=== PATIENT | female | born 1950 | race Caucasian/White ===

== ENCOUNTER → 2016-11-08 | Outpatient (CLI) | payer MEDICARE, OTHER | LOC: GLAB 14:30 | DX: J47.9 Bronchiectasis, uncomplicated (principal) ==

== ENCOUNTER 2017-02-06 12:59 | Emergency (ER) | payer MEDICARE, OTHER ==
--- NOTE | ~2017-02-06 | ER ---
PATIENT'S NAME: LAURA NIETO [facility] AGE: 66 Y [address] ROOM: [place] [address] LOCATION: [facility] ADMIT DATE: 02/06/2017 ER/Outpatient Report DISCHARGE DATE: 02/06/2017 FAMILY PHYSICIAN: Violeta Walker MD ATTENDING PHYSICIAN: Issac Arreaga TIME SEEN: 1315 hours. CHIEF COMPLAINT: Left ankle swelling. HISTORY OF PRESENT ILLNESS: The patient is a 66-year-old, white female, who was recently hiking in [place] when she started having left knee pain. The patient was seen at an urgent care in [place] where an x-ray was obtained, which showed no bony injury. The patient was put in a knee immobilizer, advised follow up and she returned to [place]. She did see her family doctor who ordered physical therapy which she has started. The patient's concern today was that she noticed a small amount of swelling around her ankle. She denied any shortness of breath, chest pain, or calf discomfort. ALLERGIES: NO ALLERGIES. CURRENT MEDICATIONS: Include, 1. Synthroid. 2. Mucinex. MEDICAL HISTORY: Includes some osteoporosis. SURGERIES: None. SOCIAL HISTORY: Nonsmoker. Denies alcohol use. The patient exercises on a regular basis. REVIEW OF SYSTEMS: GENERAL HEALTH: Good. HEAD/ENT: No recent headaches, stiff neck, or sore throat. RESPIRATORY: No shortness of breath or cough. CARDIOVASCULAR: Denies any chest pain. MUSCULOSKELETAL: Includes the recent pain of left knee, mostly medial, and PATIENT'S NAME: LAURA NIETO [facility] AGE: 66 Y [address] ROOM: [place] [address] LOCATION: [facility] ADMIT DATE: 02/06/2017 ER/Outpatient Report DISCHARGE DATE: 02/06/2017 FAMILY PHYSICIAN: Violeta Walker MD ATTENDING PHYSICIAN: Issac Arreaga she also has noticed some slight edema involving ankle, left side. PHYSICAL EXAMINATION: VITAL SIGNS: Blood pressure was 162/87, her temperature is 98.3, her respiratory rate 20, pulse 74, O2 saturations 98%. GENERAL APPEARANCE: No obvious distress. EXTREMITIES: On exam of the left knee, she did have a long elastic sleeve in place, which she just recently bought. She had been wearing a much shorter sleeve. The knee itself did not show any effusion. She had some tenderness over the medial joint line. Ligaments appeared stable, as far as her left ankle, there was just a trace of edema mostly on the medial side. LAB WORK: D-dimer was within normal range. ASSESSMENT: 1. Medial left knee pain. Somewhat suspect of medial cartilage injury. 2. Edema, slight left ankle, probably related to her tight sleeve. PLAN: The patient is to remove the sleeve while she is at rest, elevated, continue ice. Recommend she can continue some of her exercise especially the straight leg raises. Avoid the bending exercises. The patient is going to follow up with Dr. Macedo in the next 2 or 3 days. DENZEL PASCUAL FOR MD ALEJANDRA WALLER/usha /[id number] d: 02/06/17 1906 t: 02/16/17 1058, OUTPATIENT REPORT
== END 2017-02-06 14:20 | disposition disaster alternative care site (69) ==
LOC: GMED 12:59
DX: M25.562 Pain in left knee (principal); R60.0 Localized edema; Z79.899 Other long term (current) drug therapy